=== PATIENT | female | born 1970 | race Caucasian/White ===

== ENCOUNTER 2018-02-03 05:35 | Day surgery (SDC) | payer BC ==
[~2018-02-03] VITALS: Ht 165.1 cm; Wt 68.0 kg
[2018-02-03] MEDS ORDERED: BUPIVACAINE /EPINEPHRINE/PF 0.5% 30 ML VIAL INJ ONE (07:30)
[2018-02-03] MEDS ORDERED: LR 1,000 ML IV.SOLN IV ONE (07:30)
[2018-02-03] MEDS ORDERED: KETOROLAC TROMETHAMINE 30 MG VIAL IVP ONE (07:30)
[2018-02-03] MEDS ORDERED: CEFAZOLIN 2 GM IVPB PREMIX 50 ML IV ONE (07:30)
[2018-02-03] MEDS ORDERED: ONDANSETRON HCL 4 MG/2 ML VIAL IVP ONE (07:30)
[2018-02-03] MEDS ORDERED: ROCURONIUM BROMIDE 10 MG/ML (ZEMURON) IV ONE (07:30)
[2018-02-03] MEDS ORDERED: SEVOFLURANE 15 MIN GAS INH ONE (07:30)
[2018-02-03] MEDS ORDERED: fentaNYL CITRATE 250 MCG/5 ML AMP IV ONE (07:30)
[2018-02-03] MEDS ORDERED: NS IRRIG SOLN 1000 ML IR ONE (07:30)
[2018-02-03] MEDS ORDERED: MIDAZOLAM HCL 5 MG/5 ML VIAL IVP ONE (07:30)
[2018-02-03] MEDS ORDERED: LR 1,000 ML IV SCH (10:09)
[2018-02-03] MEDS ORDERED: MORPHINE 4 MG/ML INJ. SYRINGE IVP PRN ×3 (10:15)
[2018-02-03] MEDS ORDERED: ONDANSETRON HCL 4 MG/2 ML VIAL IVP PRN ×2 (10:15→10:45)
[2018-02-03] MEDS ORDERED: PROMETHAZINE HCL 25 MG/ML AMP IM PRN (10:45)
[2018-02-03] MEDS ORDERED: OXYCODONE/ACETAMINOPHEN 5-325 TABLET PO PRN (10:45)
[2018-02-03] MEDS ORDERED: OXYCODONE/ACETAMINOPHEN 5-325 TABLET ONE (11:53)
[2018-02-03 15:00] VITALS: BP_SYST 112
== END 2018-02-03 15:14 | disposition home or self-care (01) ==
LOC: SDS 05:35 → SMU 05:35 → SDS 15:14
PROVIDERS: ATTEND Obstetrics & Gynecology
DX: N80.0 Endometriosis of uterus (principal); N83.8 Other noninflammatory disorders of ovary, fallopian tube and broad ligament; Z98.890 Other specified postprocedural states; Z79.899 Other long term (current) drug therapy; K21.9 Gastro-esophageal reflux disease without esophagitis
CPT/HCPCS: 36415; 58571; 86886; 86900; 86901; 88307; C1727; J0690; J1885; J2250; J2405; J3010; J3490; J7120; E0190